=== PATIENT | male | born 1960 | race Caucasian/White ===

== ENCOUNTER 2019-08-03 09:50 | Emergency (ER) | payer SELFPAY ==
[~2019-08-03] VITALS: Ht 180.3 cm; Wt 72.7 kg
[2019-08-03 09:52] VITALS: Ht 180.3 cm; Wt 72.7 kg
[2019-08-03 10:20] LABS: BASOPHILS 0.4 % (0-2); EOSINOPHILS 0.2 % (0-7); HEMATOCRIT 39.5 % (42.0-54.0); HEMOGLOBIN 13.8 g/dL (13.5-17.5); LYMPHOCYTES 25.6 % (15-50); MCH 35.3 pg (26.0-34.0); MCHC 34.9 g/dL (31.0-37.0); MEAN PLATELET VOLUME 10.5 fL (7.4-10.4); MONOCYTES 6.9 % (2-11); NEUTROPHILS 66.9 % (40-80); PLATELET COUNT 88 10x3/uL (130-400); RBC 3.91 10x6/uL (4.20-6.10); RDW 13.1 % (11.5-14.5); WBC 4.6 10x3/uL (4.8-10.8)
[2019-08-03 10:40] LABS: ALBUMIN 4.3 g/dL (3.4-5.0); ALKALINE PHOSPHATASE 82 U/L (46-116); ALT (SGPT) 99 U/L (10-68); BILIRUBIN - TOTAL 1.21 mg/dL (0.2-1.3); CALC OSMOLALITY 277 mosm/kg (275-300); CALCIUM 9.4 mg/dL (8.5-10.1); CARBON DIOXIDE 18.7 mmol/L (21.0-32.0); CHLORIDE - SERUM 97 mmol/L (98-107); CREATININE - SERUM 0.8 mg/dL (0.6-1.3); GLUCOSE 135 mg/dL (74-106); POTASSIUM - SERUM 4.1 mmol/L (3.5-5.1); PROTEIN - SERUM 8.3 g/dL (6.4-8.2); SODIUM 139 mmol/L (136-145); UREA NITROGEN 7 mg/dL (7-18); eGFR NON AFRICAN AMERICAN > 90 mL/min (90-120)
[2019-08-03 10:53] LABS: CKMB 2.1 U/L (0.0-3.6); CREATINE KINASE 142 UL (21-232); MAGNESIUM - SERUM 1.3 mg/dL (1.8-2.4); PRO BNP 88 pg/mL (0-125); TROPONIN-I < 0.017 ng/mL (0.000-0.060)
[2019-08-03 11:25] LABS: AMYLASE - SERUM 46 U/L (25-115); LIPASE 77 U/L (73-393)
[2019-08-03 11:56] LABS: PLATELET ESTIMATE DECREASED
[2019-08-03 12:52] VITALS: BP 166/97
== END 2019-08-03 14:20 | disposition home or self-care (01) ==
LOC: D.ER 09:50
PROVIDERS: Family Medicine
DX: R55 Syncope and collapse (principal); R74.8 Abnormal levels of other serum enzymes; D69.6 Thrombocytopenia, unspecified; S00.81XA Abrasion of other part of head, initial encounter; X58.XXXA Exposure to other specified factors, initial encounter